=== PATIENT | male | born 1965 | race Caucasian/White ===

== ENCOUNTER → 2021-08-27 | Outpatient (CLI) | payer BC ==
[~2021-08-27] MED LIST: AMLODIPINE BESYL5 MG PO; BAYER CHEWABLE81 MG PO; COZAAR50 MG PO; LEVOTHYROXINE50 MC1 PO; LIPITOR20 MG PO; LOPRESSOR100 MG PO; MULTI COMPLETE1 EACH PO; NEXIUM40 M1 PO; POTASSIUM CHLO20 ME1 PO; PRAVASTATIN SOD40 MG PO; VITAMIN D31250 MCG PO
== END ==
LOC: KOH-I 09:00
DX: R19.7 Diarrhea, unspecified (principal); R10.9 Unspecified abdominal pain; R63.4 Abnormal weight loss; K74.60 Unspecified cirrhosis of liver; I81 Portal vein thrombosis; R18.8 Other ascites; K76.6 Portal hypertension
CPT/HCPCS: 76705

== ENCOUNTER → 2021-08-29 | Outpatient (CLI) | payer BC ==
[2021-08-29 11:59] LABS: ADENOVIRUS F 40/41 Not Detected (Negative); ASTROVIRUS Not Detected (Negative); CAMPYLOBACTER Not Detected (Negative); CLOSTRIDIUM DIFFICILE TOX A/B Not Detected (Negative); CRYPTOSPORIDIUM Not Detected (Negative); E.COLI 0157 Not Detected (Negative); ENTAMOEBA HISTOLYTICA Not Detected (Negative); ENTEROAGGREGATIVE E.COLI (EAEC Not Detected (Negative); ENTEROPATHOGENIC E.COLI (EPEC) Not Detected (Negative); ENTEROTOXIGENIC E.COLI (ETEC) Not Detected (Negative); GIARDIA LAMBLIA Not Detected (Negative); NOROVIRUS GI/GII Not Detected (Negative); PLESIOMONAS SHIGELLOIDES Not Detected (Negative); ROTOVIRUS A Not Detected (Negative); SALMONELLA Not Detected (Negative); SAPOVIRUS Not Detected (Negative); SHIG/ENTEROINVAS.ECOLI (EIEC) Not Detected (Negative); SHIGA-LIK TOX.PRO.E.COLI (STEC Not Detected (Negative); VIBRIO Not Detected (Negative); VIBRIO CHOLERAE Not Detected (Negative); YERSINIA ENTEROCOLITICA Not Detected (Negative)
== END ==
LOC: LAB 11:43
PROVIDERS: Nurse Practitioner
DX: R19.7 Diarrhea, unspecified (principal)
CPT/HCPCS: 87507

== ENCOUNTER → 2021-12-03 | Outpatient (CLI) | payer BC | LOC: EXRD 11:02 | DX: K74.60 Unspecified cirrhosis of liver (principal) | CPT/HCPCS: 77080 ==